=== PATIENT | female | born 1970 | race American Indian/Alaskan Native ===

== ENCOUNTER 2017-04-25 06:46 | Day surgery (SDC) | payer OTHER ==
[2017-04-25 07:56] VITALS: BMI 28.6
[2017-04-25] MEDS ORDERED: Midazolam 2 MG/2 ML VIAL ONE (08:43)
[2017-04-25] MEDS ORDERED: Propofol 10 mg/ml Inj (20 ML) ONE (08:43)
[2017-04-25] MEDS ORDERED: Lactated Ringer's 1,000 ML IV ONE (09:00)
[2017-04-25] MEDS ORDERED: HYDROmorphone 0.5 mg/0.5 ml ISec IVP PRN ×2 (10:22→10:35)
[2017-04-25] MEDS ORDERED: Lactated Ringer's 1,000 ML IV SCH (10:22)
[2017-04-25 10:42] VITALS: RESP 18
[2017-04-25 14:20] VITALS: BP 110/62; PULSE 67; TEMP 98; O2SAT 99
--- NOTE | 2017-04-28 13:33 | OP ---
PROCEDURE DATE: 04/25/2017 PREOPERATIVE DIAGNOSIS: Irregular bleeding. POSTOPERATIVE DIAGNOSIS: Irregular bleeding pending pathology. SURGEON: Dr. Bang. TYPE OF ANESTHESIA: General. ANESTHESIA ADMINISTERED BY: Dr. Swift. DESCRIPTION OF PROCEDURE: The patient in the dorso lithotomy position under general anesthesia. The patient was prepped and draped in the usual sterile manner. Straight cath was used to empty the bladder after which the patient was examined under anesthesia. The cervix was grasped anteriorly with single tooth tenaculum and insomnia, but 4.5 inches cervix was dilated. The hysteroscope was introduced, it is revealing some hypoclassific tissue and some polypoid lesions. After Myosure is done and D&C was also done obtaining with [id number] amount of tissue. His hemostasis was observed and instruments were removed from the vagina and the uterus and the patient was in satisfactory condition and away to recovery room. Madi Bang MD
== END 2017-04-25 15:00 | disposition home or self-care (01) ==
LOC: H.OPSURG 06:46
PROVIDERS: ATTEND Specialist
DX: N92.6 Irregular menstruation, unspecified (principal); D25.9 Leiomyoma of uterus, unspecified; I10 Essential (primary) hypertension

== ENCOUNTER 2018-06-19 07:06 | Day surgery (SDC) | payer OTHER ==
[2018-06-16 14:30] VITALS: BMI 33.9
[2018-06-19 08:11] VITALS: RESP 18
[2018-06-19 09:04] LABS: BASO % 0.6 % (0.0-2.0); BLOOD UREA NITROGEN 14 mg/dl (7-17); CALCIUM 8.7 mg/dL (8.4-10.2); EOS # 0.1 K/uL (0.0-0.7); EOS % 1.5 % (0.0-4.0); GFR NON-AFRICAN AMERICAN > 60; HEMOGLOBIN 11.3 g/dL (12.0-16.0); LYMPH # 1.7 K/uL (1.0-4.3); LYMPH % 25.3 % (20.0-40.0); MEAN CELL VOLUME 85.6 fl (81.0-99.0); MEAN CORPUSCULAR HEMOGLOBIN 29.1 pg (27.0-31.0); MEAN CORPUSCULAR HGB CONC 34.1 g/dL (33.0-37.0); MEAN PLATELET VOLUME 7.2 fl (7.2-11.7); MONO # 0.5 K/uL (0.0-0.8); MONO % 7.7 % (0.0-10.0); NEUT # 4.3 K/uL (1.8-7.0); NEUT % 64.9 % (50.0-75.0); NRBC % 0.1 % (0.0-0.0); RBC 3.88 Mil/uL (3.80-5.20); RED CELL DISTRIBUTION WIDTH 13.1 % (11.5-14.5); WHITE BLOOD COUNT 6.7 K/uL (4.8-10.8)
[2018-06-19] MEDS ORDERED: cefOXitin IV 1 gm in Dextrose 1 GM/50 ML BAG IVPB ONE (10:57)
[2018-06-19] MEDS ORDERED: Lactated Ringer's 1,000 ML IV ONE ×3 (11:10→14:35)
[2018-06-19] MEDS ORDERED: Propofol 10 mg/ml Inj (20 ML) ONE (11:11)
[2018-06-19] MEDS ORDERED: Midazolam 2 MG/2 ML VIAL ONE (11:11)
[2018-06-19] MEDS ORDERED: Lidocaine 2% Jelly (5 ml) TOP ONE (12:23)
[2018-06-19 16:55] VITALS: BP 121/76; PULSE 76; TEMP 98; O2SAT 100
--- NOTE | 2018-06-26 20:19 | OP ---
PROCEDURE DATE: 06/19/2018 PREOPERATIVE DIAGNOSES: Abnormal uterine bleeding and submucosal fibroid. PROCEDURE: Hysteroscopy with MyoSure and dilation and curettage. SURGEON: Madi Bang MD ANESTHESIA ADMINISTERED BY: Sunny Mendes MD DESCRIPTION OF PROCEDURE: With the patient in the dorsal lithotomy position, under general anesthesia, the patient was prepped and draped in the usual sterile manner. Straight catheter was used to enter the bladder, after which the weighted speculum was placed in the posterior vagina. Cervix was grasped anteriorly with the single-tooth tenaculum, dilated, and the hysteroscopy was put into place and a fibroid was visualized. Following this, the procedure was done. MyoSure was done and fibroid was removed. After this was done, also D and C was done to retrieve anything that was left behind. Estimated blood loss was minimal. Following this, the patient was in satisfactory condition on the way to the recovery room. Madi Bang MD
== END 2018-06-19 17:10 | disposition home or self-care (01) ==
LOC: H.OPSURG 07:06
PROVIDERS: ATTEND Specialist
DX: D25.2 Subserosal leiomyoma of uterus (principal); K21.9 Gastro-esophageal reflux disease without esophagitis; I10 Essential (primary) hypertension; E03.9 Hypothyroidism, unspecified
CPT/HCPCS: 36415; 58558; 80048; 85025; 88305; J0694; J1170; J2250; J2405; J2704; J3010; J7030; J7120